=== PATIENT | male | born 1985 | race Caucasian/White ===

== ENCOUNTER 2020-05-14 12:24 | Emergency (ER) | payer BC ==
[2020-05-14] MEDS ORDERED: BACTRIM DS TAB1 EACH PO (14:24)
[2020-05-14] MEDS ORDERED: KEFLEX CAP 500500 MG PO (14:24)
== END 2020-05-14 14:36 | disposition home or self-care (01) ==
LOC: ER1 12:24
DX: L03.115 Cellulitis of right lower limb (principal); F17.210 Nicotine dependence, cigarettes, uncomplicated
CPT/HCPCS: 99282